=== PATIENT | female | born 2000 | race Caucasian/White ===

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

== ENCOUNTER 2021-01-02 10:12 | Observation (INO) | payer OTHER ==
[2021-01-02 10:18] VITALS: BMI 28.9
[2021-01-02] MEDS ORDERED: ONDANSETRON *ODT* 4 MG TABLET SL ONE (10:29)
[2021-01-02] MEDS ORDERED: MAG HYDROX/AL HYDROX/SIMETH 30 ML UNIT-DOSE CUP PO ONE (10:30)
[2021-01-02] MEDS ORDERED: ONDANSETRON *ODT* 4 MG TABLET ONE (10:42)
[2021-01-02] MEDS ORDERED: MAG HYDROX/AL HYDROX/SIMETH 30 ML UNIT-DOSE CUP ONE (10:42)
[2021-01-02 10:48] LABS: BASO % 0.3 % (0-2.0); EOS % 1.2 % (0-4.5); HEMOGLOBIN 13.7 GM/dL (10.7-15.3); LYMPH % 11.6 % (8-40); MCH 30.3 pg (25.7-33.7); MCHC 35.1 g/dl (32.0-36.0); MEAN CELL VOLUME 86.3 fl (80-96); MEAN PLT VOLUME 7.7 fl (7.5-11.1); MONO % 7.6 % (3.8-10.2); NEUT % 79.3 % (42.8-82.8); PLATELET COUNT 331 10^3/uL (134-434); RBC 4.52 M/mm3 (3.60-5.2); RDW 13.4 % (11.6-15.6); WHITE BLOOD COUNT 7.6 K/mm3 (4.0-10.0)
[2021-01-02 10:49] LABS: PH,URINE >= 9.0 (5.0-8.0); URINE APPEARANCE CLOUDY; URINE BILIRUBIN NEGATIVE (NEGATIVE); URINE COLOR YELLOW; URINE GLUCOSE (UA) NEGATIVE (NEGATIVE); URINE KETONE NEGATIVE (NEGATIVE); URINE LEUK ESTERASE NEGATIVE (NEGATIVE); URINE NITRITE NEGATIVE (NEGATIVE); URINE PROTEIN TRACE (NEGATIVE)
[2021-01-02 10:52] LABS: HCG,QUALITATIVE URINE Negative
[2021-01-02 11:13] LABS: ALBUMIN 4.4 g/dl (3.4-5.0); BLOOD UREA NITROGEN 9.8 mg/dL (7-18)
[2021-01-02 11:16] LABS: CREATININE 0.8 mg/dL (0.55-1.3)
[2021-01-02 11:17] LABS: BILIRUBIN,TOTAL 0.6 mg/dL (0.2-1)
[2021-01-02] MEDS ORDERED: CEFOXITIN SODIUM 2 GM in DEXTROSE 5%-WATER - 100 ML IVPB ONE (13:32)
[2021-01-02] MEDS ORDERED: ACETAMINOPHEN 1000 MG/100 ML VIAL (NON FORMULARY) IVPB ONE (13:46)
[2021-01-02] MEDS ORDERED: ACETAMINOPHEN INJECTION 100 ML IVPB ONE (14:20)
[2021-01-02] MEDS ORDERED: ACETAMINOPHEN 325 MG TABLET (FP) PO PRN (16:58)
[2021-01-02] MEDS: SODIUM CHLORIDE 1,000 ML IV SCH (16:58)
[2021-01-02] MEDS ORDERED: cefOXitin SODIUM 1 GM/10 ML PUSH (RESTRICTED TO ID) IVPUSH SCH ×2 (18:00)
[2021-01-03] MEDS: SODIUM CHLORIDE 1,000 ML IV SCH (04:02)
[2021-01-03 07:57] LABS: HEMATOCRIT 34.8 % (32.4-45.2); HEMOGLOBIN 12.3 GM/dL (10.7-15.3); MCH 30.4 pg (25.7-33.7); MCHC 35.4 g/dl (32.0-36.0); MEAN CELL VOLUME 86.1 fl (80-96); MEAN PLT VOLUME 8.2 fl (7.5-11.1); PLATELET COUNT 275 10^3/uL (134-434); RBC 4.04 M/mm3 (3.60-5.2); RDW 13.2 % (11.6-15.6); WHITE BLOOD COUNT 3.2 K/mm3 (4.0-10.0)
[2021-01-03 08:15] LABS: BLOOD UREA NITROGEN 7.9 mg/dL (7-18); CALCIUM 8.2 mg/dL (8.5-10.1)
[2021-01-03 08:19] LABS: CREATININE 0.7 mg/dL (0.55-1.3)
[2021-01-03] MEDS ORDERED: CEFTRIAXONE 1 GM in DEXTROSE 5%-WATER - 50 ML IVPB SCH (10:00)
[2021-01-03] MEDS ORDERED: KETOROLAC TROMETHAMINE 30 MG/1 ML VIAL ONE (12:52)
[2021-01-03] MEDS ORDERED: DEXAMETHASONE SOD PHOSPHATE 4 MG/1 ML VIAL ONE (12:52)
[2021-01-03] MEDS ORDERED: LIDOCAINE HCL/PF 2% SDV 5ML VIAL ONE (12:52)
[2021-01-03] MEDS ORDERED: ROCURONIUM BROMIDE 100 MG/10 ML VIAL ONE (12:53)
[2021-01-03] MEDS ORDERED: MIDAZOLAM HCL 2 MG/2 ML SINGLE DOSE VIAL ONE ×2 (12:53)
[2021-01-03] MEDS ORDERED: PROPOFOL 20 ML ONE (12:53)
[2021-01-03] MEDS ORDERED: oxyCODONE HCL 5 MG TABLET PO PRN (13:52)
[2021-01-03] MEDS ORDERED: LACTATED RINGERS SOLUTION 1,000 ML IV SCH (14:00)
[2021-01-03] MEDS ORDERED: GLYCOPYRROLATE 0.2 MG/1 ML VIAL ONE (14:40)
[2021-01-03] MEDS ORDERED: BUPIVACAINE HCL/PF 0.5% (5MG/ML) 10 ML VIAL ONE (14:40)
[2021-01-03] MEDS ORDERED: NEOSTIGMINE METHYLSULFATE 0.5 MG/ML - 10 ML MDV ONE (14:41)
[2021-01-03] MEDS ORDERED: ONDANSETRON 4 MG/2 ML VIAL ONE (15:55)
[2021-01-03] MEDS ORDERED: ONDANSETRON 4 MG/2 ML VIAL IVPUSH PRN ×2 (16:58)
[2021-01-03] MEDS: oxyCODONE HCL 5 MG TABLET PO PRN ×2 (17:09→21:47)
[2021-01-03] MEDS ORDERED: ACETAMINOPHEN 1000 MG/100 ML VIAL (NON FORMULARY) IVPB ONE (19:53)
[2021-01-03] MEDS ORDERED: MELATONIN 5 MG TABLETS PO ONE (22:14)
[2021-01-04] MEDS: oxyCODONE HCL 5 MG TABLET PO PRN (08:58)
[2021-01-04 09:01] VITALS: BP 117/66; PULSE 86; TEMP 98.8
== END 2021-01-04 13:59 | disposition home or self-care (01) ==
LOC: JER 10:12 → UNDOADMOB 13:52 → JERBED 13:52 → INTOOBSV 13:52 → J7W 17:39 → JERBED 17:39 → J7W 01-03 14:17 → JERBED 01-03 14:17
PROVIDERS: ADMIT Internal Medicine; ATTEND Nurse Practitioner Acute Care
PROC: 3E033NZ Introduction of Analgesics, Hypnotics, Sedatives into Peripheral Vein, Percutaneous Approach (ICD-10-PCS; 2021-01-03)
PROC: 3E03329 Introduction of Other Anti-infective into Peripheral Vein, Percutaneous Approach (ICD-10-PCS; 2021-01-03)
PROC: 3E033GC Introduction of Other Therapeutic Substance into Peripheral Vein, Percutaneous Approach (ICD-10-PCS; 2021-01-03)
PROC: 3E0337Z Introduction of Electrolytic and Water Balance Substance into Peripheral Vein, Percutaneous Approach (ICD-10-PCS; 2021-01-03)
PROC: 0DTJ4ZZ Resection of Appendix, Percutaneous Endoscopic Approach (ICD-10-PCS; principal; 2021-01-03 11:30)
DX: K37 Unspecified appendicitis (principal); Z20.822 Contact with and (suspected) exposure to COVID-19; Z29.9 Encounter for prophylactic measures, unspecified
CPT/HCPCS: 36415; 74177-TC; 76830-TC; 80048; 80053; 81003; 84703; 85025; 85027; 87086; 88304-TC; 94760; 96361; 96365; 96375; 99285-25; C9803; G0378; J0131; Q0162; Q9967; U0003; U0005

== ENCOUNTER 2022-10-29 18:30 | Emergency (ER) | payer OTHER ==
[2022-10-29 18:33] VITALS: BP 128/89; PULSE 99; RESP 18; TEMP 98.5; BMI 25.4
[2022-10-29] MEDS ORDERED: DEXAMETHASONE SOD PHOSPHATE 10 MG/1 ML VIAL IM ONE (20:09)
[2022-10-29] MEDS ORDERED: DEXAMETHASONE SOD PHOSPHATE 10 MG/1 ML VIAL ONE (20:12)
[2022-10-29] MEDS ORDERED: PENICILLIN G BENZATHINE 1,200,000 UNIT/2 ML PFS IM ONE ×2 (20:29→20:33)
== END 2022-10-29 21:06 | disposition home or self-care (01) ==
LOC: JERFT 18:30
PROC: 3E02329 Introduction of Other Anti-infective into Muscle, Percutaneous Approach (ICD-10-PCS; principal; 2022-10-29)
PROC: 3E023GC Introduction of Other Therapeutic Substance into Muscle, Percutaneous Approach (ICD-10-PCS; 2022-10-29)
DX: J02.9 Acute pharyngitis, unspecified (principal); Z20.822 Contact with and (suspected) exposure to COVID-19
CPT/HCPCS: 87651; 99284-25; J1100

== ENCOUNTER 2024-09-28 18:19 | Emergency (ER) | payer OTHER ==
[2024-09-28 18:40] VITALS: BP 127/73; PULSE 73; RESP 15; TEMP 98.2; BMI 27.3
[2024-09-28] MEDS ORDERED: KETOROLAC TROMETHAMINE 30 MG/1 ML VIAL ONE (18:57)
[2024-09-28] MEDS: KETOROLAC TROMETHAMINE 15 MG/ML VIAL IM ONE (19:00)
[2024-09-28 23:08] LABS: HCV DIAGNOSTIC IN-HOUSE W/RFLX NON-REACTIVE (NONREACTIVE)
[2024-09-28 23:09] LABS: HIV INTERPRETATION NEGATIVE (NEGATIVE)
== END 2024-09-28 20:12 | disposition home or self-care (01) ==
LOC: FER 18:19
PROC: 3E0233Z Introduction of Anti-inflammatory into Muscle, Percutaneous Approach (ICD-10-PCS; principal; 2024-09-28)
DX: R07.2 Precordial pain (principal)
CPT/HCPCS: 36415; 71046-TC-FY; 86803; 87389; 93005; 99285-25